=== PATIENT | female | born 1975 | race Caucasian/White ===

== ENCOUNTER 2018-12-05 09:54 | Outpatient (CLI) | payer MEDICARE ==
--- NOTE | 2018-12-05 11:03 | CT ---
CT TEMPORAL BONES WITH CONTRAST: HISTORY: Pulsatile tinnitus. COMPARISON: No prior imaging comparison available. FINDINGS: Evaluation of each temporal bone reveals an intact ossicular chain, and patent middle ear cavities. T ympanic membranes are unremarkable. Intratemporal course of each facial nerve is normal appearing. The mastoid air cells are patent bilaterally. No significant opacification of the external auditory c anals. No evidence of vascular mass within either middle ear cavity. No evidence of a significant, high ridi ng jugular bulb, bilaterally. The vestibulocochlear apparatus and semicircular canals are normal appearing. IMPRESSION: 1. No acute temporal bone abnormalities, bilaterally. If there is need for further evaluation, consider followup with MRI internal auditory canal with and without contrast, as clinically necessary. 2. Incidental note of soft tissue mass at the right nasopharynx. This is incompletely visualized. Re commend correlation with dedicated physical exam and direct visualization. In addition, CT of the neck, or MRI of the neck soft tissues also recommended to further assess. Transcribed Date/Time: 12/05/2018 11:46 AM
[2018-12-05] MEDS ORDERED: Iopamidol 370 76% 100 ML VIAL ONE (12:33)
== END 2018-12-05 09:55 | disposition home or self-care (01) ==
LOC: CT 09:54
PROVIDERS: ATTEND Student in an Organized Health Care Education/Training Program
DX: H93.A9 Pulsatile tinnitus, unspecified ear (principal); M79.89 Other specified soft tissue disorders
CPT/HCPCS: 70481; Q9967

== ENCOUNTER 2019-12-15 13:05 | Outpatient (CLI) | payer MEDICARE, MEDICAID ==
--- NOTE | 2019-12-15 14:00 | MMO ---
Bilateral MAMMO Bilat Diag [facility]. CLINICAL HISTORY: Patient is 44 years old and is seen for diagnostic exam. The patient has no family history of breast cancer. The patient has no personal history of cancer. VIEWS: The views performed were: bilateral craniocaudal with tomosynthesis; bilateral mediolateral oblique with tomosynthesis; bilateral mediolateral with tomosynthesis; and right exaggerated craniocaudal. FILMS COMPARED: The present examination has been compared to prior imaging studies performed at [facility] on 12/15/2019, and at [facility] on 07/21/2017. This study has been interpreted with the assistance of computer-aided detection. MAMMOGRAM FINDINGS: There are scattered fibroglandular densities. There are no concerning mammographic or sonographic abnormalities in the area of palpable concern. The patient is referred back to her clinician. Negative imaging findings should not preclude biopsy if clinical findings are suspicious. There are no suspicious masses, suspicious calcifications, or new areas of architectural distortion. IMPRESSION: THERE ARE NO CONCERNING MAMMOGRAPHIC ABNORMALITIES IN THE AREA OF PALPABLE CONCERN. THE PATIENT IS REFERRED BACK TO HER CLINICIAN. NEGATIVE IMAGING FINDINGS SHOULD NOT PRECLUDE BIOPSY IF CLINICAL FINDINGS ARE SUSPICIOUS. THE RESULTS OF THIS EXAM WERE SENT TO THE PATIENT. ACR BI-RADS Category 2 - Benign finding MAMMOGRAPHY NOTE: 1. A negative mammogram report should not delay a biopsy if a dominant of clinically suspicious mass is present. 2. Approximately 10% to 15% of breast cancers are not detected by mammography. 3. Adenosis and dense breasts may obscure an underlying neoplasm. Reported by: ASHLI OBREGON MD Electonically Signed: [id number]
--- NOTE | 2019-12-15 14:01 | ULT ---
EXAM: US Breast Limited Rt PROVIDED CLINICAL HISTORY: Right breast palpable abnormality COMPARISON: None FINDINGS: Limited sonographic interrogation was performed of the right breast in the region of patient palpable abnormality and pain. Normal-appearing lymph nodes are seen. No concerning sonographic findings are evident. IMPRESSION: No concerning sonographic findings are evident. Negative or benign imaging findings should not preclu de further evaluation of a clinically suspicious area. The patient is referred back to her clinician. BI-RADS 2 -- benign findings
== END 2019-12-15 13:06 | disposition home or self-care (01) ==
LOC: BICMAMMO 13:05
PROVIDERS: ATTEND Family Medicine
DX: N64.4 Mastodynia (principal)
CPT/HCPCS: 76642; 77066; G0279

== ENCOUNTER 2021-03-30 16:57 | Inpatient (IN) | payer MEDICARE, MEDICAID ==
[~2021-03-30 16:57] MED LIST: Iopamidol 370 76% 100 ML VIAL ONE; Iopamidol 370 76% 50 ML VIAL FS ONE
[2021-03-30] MEDS ORDERED: Atropine Sulfate 1 mg/10 ml Syringe ONE (17:18)
[2021-03-30] MEDS ORDERED: Midazolam HCl 2 mg/2 ml Vial ONE (17:18)
[2021-03-30] MEDS ORDERED: Nitroglycerin 100MG/250ML BOT 250 ML ONE (17:19)
[2021-03-30] MEDS ORDERED: Fentanyl 100 MCG/2 ML VIAL ONE (17:19)
[2021-03-30] MEDS ORDERED: Amiodarone 150 MG/3 ML VIAL ONE ×2 (17:30→18:20)
[2021-03-30] MEDS ORDERED: Heparin 10,000 UNITS/ 10 ML VIAL ONE (17:32)
[2021-03-30] MEDS ORDERED: Norepinephrine 4 MG/4 ML VIAL ONE (17:40)
[2021-03-30] MEDS ORDERED: Clopidogrel Bisulfate 300 MG TAB ONE (17:49)
[2021-03-30] MEDS ORDERED: Ondansetron PF 4 MG/2 ML Vial ONE (17:53)
[2021-03-30] MEDS ORDERED: Adenosine 6 MG/2 ML VIAL ONE (17:57)
[2021-03-30] MEDS ORDERED: Acetaminophen/Codeine 30-300mg Tablet PO PRN (18:47)
[2021-03-30] MEDS ORDERED: Milk Of Magnesia 30 ML UDCUP PO PRN (18:47)
[2021-03-30 18:54] LABS: #Lymphocytes 3.2 thou/uL (1.20-3.40); #Neutrophils 13.3 thou/uL (1.40-6.50); %Basophils 0.3 % (0.0-1.0); %Eosinophils 0.2 % (0.0-10.0); %Lymphocytes 18.2 % (21.0-51.0); %Monocytes 5.6 % (0.0-10.0); %Neutrophils 75.7 % (42.0-75.0); Hemoglobin 11.9 g/dL (12.0-16.0); Mean Corpuscular HGB CONC 32.2 g/dL (32.0-36.0); Mean Corpuscular Hemoglobin 33.3 pg (27.0-31.0); Mean Platelet Volume 9.4 fL (7.4-10.4); Platelet Count 230 thou/uL (130-400); RBC Distribution Width 11.6 % (11.5-14.5); Red Blood Cell (RBC) Count 3.56 mill/uL (4.20-5.40); White Blood Cell (WBC) Count 17.5 thou/uL (4.8-10.8)
[2021-03-30] MEDS ORDERED: Aggrastat 12.5 MG/250 ML 250 ML IVPB SCH (19:00)
[2021-03-30] MEDS ORDERED: Aggrastat 12.5 MG/250 ML 250 ML ONE (19:02)
[2021-03-30 19:09] LABS: ALT (SGPT) 16 U/L (8-55); AST (SGOT) 33 U/L (5-34); Albumin 3.5 g/dL (3.5-5.0); Alkaline Phosphatase 97 U/L (40-110); Anion Gap 19 mmol/L (10-20); BUN (Urea Nitrogen) 6 mg/dL (7.0-18.7); Bilirubin, Total 0.3 mg/dL (0.2-1.2); Calc. Creatinine Clearance 0 mL/min (70-130); Calcium 7.1 mg/dL (7.8-10.44); Carbon Dioxide 14 mmol/L (22-29); Chloride 111 mmol/L (98-107); Globulin 2.1 g/dL (2.4-3.5); Glucose 120 mg/dL (70-105); Potassium 3.7 mmol/L (3.5-5.1); Protein, Total 5.6 g/dL (6.0-8.3); Sodium 140 mmol/L (136-145)
[2021-03-30 19:14] LABS: Troponin I 0.031 ng/mL (< 0.028)
[2021-03-30] MEDS: Sodium Chloride 0.9% 1,000 ML IV SCH (19:59)
[2021-03-30] MEDS: Atorvastatin Calcium 40 MG TAB PO SCH (21:43)
[2021-03-30] MEDS: HYDROcodone/Acetaminophen 5/325 mg Tablet PO PRN (21:44)
[2021-03-30] MEDS: Amiodarone 450 MG, Admixture Fee 1 EACH in Dextrose 5% in Water 250 ML IVPB SCH ×2 (22:58→23:55)
[2021-03-31 00:09] VITALS: BMI 26.0
[2021-03-31 00:35] LABS: SARS-CoV-2 NAA Rapid Test Not Detected (NotDetected)
[2021-03-31] MEDS: HYDROcodone/Acetaminophen 5/325 mg Tablet PO PRN ×3 (04:08→19:08)
[2021-03-31 04:30] LABS: #Lymphocytes 2.1 thou/uL (1.20-3.40); #Monocytes 0.8 thou/uL (0.11-0.59); #Neutrophils 10.5 thou/uL (1.40-6.50); %Basophils 0.3 % (0.0-1.0); %Eosinophils 0.2 % (0.0-10.0); %Lymphocytes 15.7 % (21.0-51.0); %Monocytes 6.1 % (0.0-10.0); %Neutrophils 77.8 % (42.0-75.0); Hemoglobin 12.4 g/dL (12.0-16.0); Mean Corpuscular HGB CONC 34.1 g/dL (32.0-36.0); Mean Corpuscular Hemoglobin 32.9 pg (27.0-31.0); Mean Corpuscular Volume 96.5 fL (78.0-98.0); Mean Platelet Volume 9.8 fL (7.4-10.4); Platelet Count 247 thou/uL (130-400); RBC Distribution Width 11.6 % (11.5-14.5); Red Blood Cell (RBC) Count 3.76 mill/uL (4.20-5.40); White Blood Cell (WBC) Count 13.5 thou/uL (4.8-10.8)
[2021-03-31 04:42] LABS: ALT (SGPT) 121 U/L (8-55); AST (SGOT) 180 U/L (5-34); Albumin 3.7 g/dL (3.5-5.0); Alkaline Phosphatase 150 U/L (40-110); Anion Gap 13 mmol/L (10-20); BUN (Urea Nitrogen) 4 mg/dL (7.0-18.7); Bilirubin, Total 0.7 mg/dL (0.2-1.2); Calc. Creatinine Clearance 99 mL/min (70-130); Calcium 8.1 mg/dL (7.8-10.44); Carbon Dioxide 18 mmol/L (22-29); Chloride 112 mmol/L (98-107); Globulin 2.4 g/dL (2.4-3.5); Glucose 125 mg/dL (70-105); Potassium 3.7 mmol/L (3.5-5.1); Protein, Total 6.1 g/dL (6.0-8.3); Sodium 139 mmol/L (136-145)
[2021-03-31] MEDS: Sodium Chloride 0.9% 1,000 ML IV SCH ×2 (04:58→10:29)
[2021-03-31] MEDS: Clopidogrel Bisulfate 75 MG TAB PO SCH (08:17)
[2021-03-31] MEDS: Aspirin Chewable 81 MG TAB PO SCH (08:17)
[2021-03-31 10:48] LABS: Troponin I 6.024 ng/mL (< 0.028)
[2021-03-31 15:04] LABS: Troponin I 6.904 ng/mL (< 0.028)
[2021-03-31] MEDS: Amiodarone 450 MG, Admixture Fee 1 EACH in Dextrose 5% in Water 250 ML IVPB SCH (17:27)
[2021-03-31] MEDS ORDERED: Ondansetron PF 4 MG/2 ML Vial IVP PRN (20:00)
[2021-03-31] MEDS: Atorvastatin Calcium 40 MG TAB PO SCH (20:05)
[2021-04-01] MEDS: Sodium Chloride 0.9% 1,000 ML IV SCH ×2 (02:02→11:40)
[2021-04-01 04:02] LABS: Cardiac Risk 5.8 (Less than 4.5)
[2021-04-01] MEDS: Aspirin Chewable 81 MG TAB PO SCH (08:37)
[2021-04-01] MEDS: Clopidogrel Bisulfate 75 MG TAB PO SCH (08:37)
[2021-04-01] MEDS: Amiodarone 450 MG, Admixture Fee 1 EACH in Dextrose 5% in Water 250 ML IVPB SCH (08:37)
[2021-04-01] MEDS ORDERED: Lisinopril 10 MG TAB PO SCH (11:15)
[2021-04-01] MEDS ORDERED: Metoprolol Tartrate 25 MG TAB PO SCH (11:15)
[2021-04-01] MEDS ORDERED: Atorvastatin Calcium 40 MG TAB PO SCH (13:14)
[2021-04-01] MEDS: Amiodarone 200 MG TAB PO SCH (21:25)
[2021-04-01] MEDS: HYDROcodone/Acetaminophen 5/325 mg Tablet PO PRN (21:27)
[2021-04-02] MEDS: Clopidogrel Bisulfate 75 MG TAB PO SCH (08:50)
[2021-04-02] MEDS: Amiodarone 200 MG TAB PO SCH (08:51)
[2021-04-02] MEDS: Aspirin Chewable 81 MG TAB PO SCH (08:51)
[2021-04-02] MEDS ORDERED: Metoprolol Tartrate 25 MG TAB PO SCH (09:00)
[2021-04-02] MEDS ORDERED: Venlafaxine HCl XR 75 MG CAP PO SCH (09:00)
[2021-04-02] MEDS ORDERED: Lisinopril 10 MG TAB PO SCH (09:00)
[2021-04-02 14:41] VITALS: BP 132/84; TEMP 99.1
[2021-04-03] MEDS ORDERED: FLU VACC QS2021-22(6MOS UP)/PF 60 MCG/0.5 ML SYRINGE IM ONE (09:00)
== END 2021-04-02 16:20 | disposition home or self-care (01) | DRG 246 ==
LOC: ERS 16:57 → SDC/OP 17:06 → CCU 17:28 → UNDOADMIN 17:41 → CCU 17:41 → 2NO 04-01 20:48
PROVIDERS: ADMIT Internal Medicine Cardiovascular Disease; ATTEND Internal Medicine Cardiovascular Disease
PROC: 027137Z Dilation of Coronary Artery, Two Arteries with Four or More Drug-eluting Intraluminal Devices, Percutaneous Approach (ICD-10-PCS; principal; 2021-03-30)
PROC: 02C03ZZ Extirpation of Matter from Coronary Artery, One Artery, Percutaneous Approach (ICD-10-PCS; 2021-03-30)
PROC: 3E03317 Introduction of Other Thrombolytic into Peripheral Vein, Percutaneous Approach (ICD-10-PCS; 2021-03-30)
PROC: B240ZZ3 Ultrasonography of Single Coronary Artery, Intravascular (ICD-10-PCS; 2021-03-30)
PROC: 4A023N7 Measurement of Cardiac Sampling and Pressure, Left Heart, Percutaneous Approach (ICD-10-PCS; 2021-03-30)
PROC: B2111ZZ Fluoroscopy of Multiple Coronary Arteries using Low Osmolar Contrast (ICD-10-PCS; 2021-03-30)
PROC: 5A2204Z Restoration of Cardiac Rhythm, Single (ICD-10-PCS; 2021-03-30)
PROC: 3E033PZ Introduction of Platelet Inhibitor into Peripheral Vein, Percutaneous Approach (ICD-10-PCS; 2021-03-30)
PROC: B2151ZZ Fluoroscopy of Left Heart using Low Osmolar Contrast (ICD-10-PCS; 2021-03-30)
PROC: 5A1223Z Performance of Cardiac Pacing, Continuous (ICD-10-PCS; 2021-03-30)
DX: I21.19 ST elevation (STEMI) myocardial infarction involving other coronary artery of inferior wall (principal); I49.01 Ventricular fibrillation; Z20.822 Contact with and (suspected) exposure to COVID-19; I25.10 Atherosclerotic heart disease of native coronary artery without angina pectoris; E78.00 Pure hypercholesterolemia, unspecified; I10 Essential (primary) hypertension; R79.89 Other specified abnormal findings of blood chemistry; F31.9 Bipolar disorder, unspecified; E78.5 Hyperlipidemia, unspecified; F17.210 Nicotine dependence, cigarettes, uncomplicated; Z88.5 Allergy status to narcotic agent; Z79.899 Other long term (current) drug therapy; Z91.040 Latex allergy status; I95.9 Hypotension, unspecified
CPT/HCPCS: 33210; 36415; 37184; 80053; 80061; 82553; 84484; 85025; 85347; 92941; 92960; 92975; 92978; 93005; 93010; 93306; 93458; 93798; 99152; 99153; 99285; C1753; C1757; C1769; C1874; C9606; J0153; J0282; J0461; J1644; J2250; J2405; J3010; J3246; J7050; J7070; Q9967; U0002